=== PATIENT | female | born 1965 | race Caucasian/White ===

== ENCOUNTER 2018-06-09 02:41 | Emergency (ER) | payer SELFPAY ==
[~2018-06-09] VITALS: Ht 160 cm; Wt 77.3 kg
[~2018-06-09 02:41] MED LIST: METF-444 PO
[2018-06-09] MEDS ORDERED: LISI-662 PO (02:53)
[2018-06-09 02:54] LABS: GLUCOSE,POINT OF CARE 364 MG/DL (70-110)
[2018-06-09] MEDS ORDERED: KETOROLAC TROMETHAMINE 60 MG/2 ML VIAL IM ONE (03:30)
[2018-06-09] MEDS ORDERED: CYCLOBENZAPRINE HCL 10 MG TABLET PO ONE (03:30)
[2018-06-09 04:03] LABS: APPEARANCE,URINE CLEAR (CLEAR); BILIRUBIN,URINE NEGATIVE (NEGATIVE); GLUCOSE, URINE (UA) >=1000 mg/dL (NEGATIVE); KETONES,URINE NEGATIVE (NEGATIVE); LEUKOCYTE ESTERASE ,URINE MODERATE (NEGATIVE); NITRATE,URINE NEGATIVE (NEGATIVE); OCCULT BLOOD,URINE NEGATIVE (NEGATIVE); PH,URINE 7.5 (5.0-8.0); PROTEIN,URINE NEGATIVE (NEGATIVE)
[2018-06-09 04:23] LABS: BACTERIA,URINE None Seen /HPF (None Seen); WBC,URINE 26-50 /HPF (0-5)
[2018-06-09 04:24] LABS: SQUAMOUS EPITHELIAL CELL,UR Moderate /LPF (None Seen)
[2018-06-09 05:33] VITALS: BP 148/79
== END 2018-06-09 05:37 | disposition home or self-care (01) ==
LOC: EMS 02:43
DX: M62.830 Muscle spasm of back (principal); I10 Essential (primary) hypertension; E11.9 Type 2 diabetes mellitus without complications
CPT/HCPCS: 81001; 81002; 82962; 87086; 93005; 96372; 99284; J1885